=== PATIENT | female | born 1975 | race Caucasian/White ===

== ENCOUNTER 2025-03-31 17:36 | Emergency (ER) | payer BC, SELFPAY ==
[2025-03-31 17:39] VITALS: BP 157/105
[2025-03-31 20:30] VITALS: BMI 35.2
--- NOTE | 2025-03-31 22:34 | ED.GENMED ---
History of Present Illness
General
Chief Complaint: Musculo-Skeletal Complaint
Source: patient and spouse
Exam Limitations: none
Time Seen by Provider: 03/31/25 22:03
Nursing documentation reviewed up to this point in time: agreed with
History of Present Illness
History of Present Illness:
Note:
CHIEF COMPLAINT(S)
Pain in the right knee and leg for the past two weeks.
HISTORY OF PRESENT ILLNESS
The patient is a 49-year-old female who presented with persistent pain in her right leg, particularly in the knee and calf, which began two weeks ago following a physically active day involving moving her daughters to camp. The pain is described as
consistent, particularly when weight is placed on the leg, and is most pronounced upon standing after sitting for extended periods, such as getting out of a car. The patient reports that the pain tends to improve somewhat after taking initial steps
but never fully resolves, leaving an underlying discomfort. Recently, she experienced a significant increase in pain after hearing a 'pop' while ascending stairs, which was followed by shooting pain right anteromedial knee radiating to anteromedial
proximal calf region. She initially consulted her primary care physician 5 days ago who suspected a pulled muscle and advised the use of Advil (Ibuprofen) and prescribed Cyclobenzaprine as a muscle relaxant to take at bedtime. However, she reported
no relief from the Advil and experienced dizziness and arm pain after taking Cyclobenzaprine, leading her to discontinue its use after consulting with an on-call physician. She had an appt today at 6 pm with her PCP but with 'pop' sensation and
increased pain, she came to the ED for urgent evaluation.
The pain now is such that the patient avoids placing weight on her right knee when climbing stairs and describes a notable incident of increased pain with movement today. The pain distribution is mostly anterior and lateral, and while palpation of
the area is not acutely painful, the knee feels stiff. The patient has been taking up to three Advil pills at a time, last taken yesterday, but reports no significant relief from symptoms. She does not recall a specific injury event other than the
day her symptoms began. There is no history of any gastrointestinal issues with Advil usage.
No prior history of knee pain.
PLAN
1. Administer a Toradol injection for immediate pain relief.
2. Obtain a knee X-ray to rule out any structural abnormalities or significant arthritis.
3. Prescribe oral Diclofenac, 75 mg twice daily, for sustained inflammation control and pain management.
4. Provide a knee immobilizer to stabilize the joint and reduce movement, possibly supplemented by crutches if necessary, to allow for partial weight-bearing.
5. Advise the patient to follow up with orthopedics for further evaluation if symptoms persist.
DIFFERENTIAL DIAGNOSIS
The Differential Diagnosis includes, in no particular order and is not limited to:
1. Patellar Tendonitis
2. Meniscal Tear
3. Ligament Sprain or Strain
4. Osteoarthritis
5. Knee Bursitis
6. Rheumatoid Arthritis
7. Cartilage Injury
8. Muscle Strain
9. Gout
10. Deep Vein Thrombosis (ruled out by previous testing)
Past History
Past History
ED Past Medical History: None
ED Past Surgical History: Other (Deviated septum repair)
Social History
Tobacco: Non-smoker
Alcohol: None
Personal:
Living: with family
Employment: Employed (voice teacher)
Family History
Family History: Other (Noncontributory)
Phy Exam
Physical Exam
Physical Exam:
GENERAL: 49-year-old woman appears her stated age, awake and alert, pleasant, appears in no acute distress. is accompanying.
EYE: anicteric
NECK: Supple, nontender, no meningismus, no significant adenopathy.
ENT: oral mucosa is moist. No rhinorrhea.
CARDIAC: Regular rate and rhythm. no murmur.
LUNGS: Clear breath sounds bilaterally, no acute respiratory distress, no wheezes/rales/rhonchi
ABDOMEN: Soft, nondistended, without focal tenderness, no r/g, no cvat. normoactive BS.
BACK: No midline bony tenderness. Straight leg raising is negative bilaterally.
NEUROLOGICAL: Alert and oriented x3, no focal neuro deficits.
SKIN: Warm and dry, normal color, skin intact. No rash.
MUSCULOSKELETAL: No C/C/E. peripheral pulses are full and equal b/l. Right knee has questionably very minimal soft tissue swelling noted anteriorly. There is no erythema. There is mild tenderness to the right knee posteriorly. Minimal
intermittent tenderness right anteromedial proximal calf region. There is full knee range of motion with increased pain with full extension. No crepitus. No laxity. No tenderness to the thigh nor hip and full hip range of motion without
difficulty nor pain.
PSYCH: Normal and appropriate interaction.
Course
Orders/Labs/Results
Orders:
Orders
03/31/25 17:44
US Periph Venous LOWER Ext RT Urgent
Comment:
Reason For Exam: Calf pain and posterior leg pain
03/31/25 22:33
Knee Immobilizer Right-Treatme ONCE
Ketorolac [Toradol] 60 mg IM NOW STA
CR Knee- Right 4 Or More View* Urgent
Comment:
Reason For Exam: pain R knee x 2 weeks
Vital Signs
Initial and Last Documented VS:
Initial Vital Signs
Temp Pulse Resp BP Pulse Ox
98.4 F 94 16 157/105 99
03/31/25 17:39 03/31/25 17:39 03/31/25 17:39 03/31/25 17:39 03/31/25 17:39
Last Documented Vital Signs
Temp Pulse Resp BP Pulse Ox
98.4 F 94 16 157/105 99
03/31/25 17:39 03/31/25 17:39 03/31/25 17:39 03/31/25 17:39 03/31/25 22:36
*Radiology
Radiology exam reviewed: preliminary read by ED provider (Knee x-rays unremarkable) and radiology read reviewed (Ultrasound right lower extremity/DVT study negative.)
*Pulse Oximetry
SaO2: 99
Oxygen Mode of Delivery: Room air
Patient hypoxic: no
*Critical Care Note
Total Time (30-74mins, 75-104mins- exclusive of procedures): Not Applicable
Update Note
Update Note:
Knee x-ray is unremarkable.
I suspect focal knee strain, overuse injury.
Patient reports moderate improvement in pain after an IM dose of Toradol.
Will start a course of diclofenac to be taken twice daily. Recommend no NSAIDs while taking diclofenac.
Will place in knee immobilizer.
Recommend rest, heat.
Will refer to orthopedics for follow-up.
ED Attending Note
-
Portions of this chart may have been created with voice recognition software.� Occasional wrong word or��sound alike� substitutions may have occurred due to the inherent limitations of voice recognition software.
Discharge Plan
Departure
Patient Disposition: Home (Routine Discharge)
Date of Disposition: 04/01/25
Time of Disposition: 00:09
Patient with high blood pressure during this ER visit?: Yes
Condition: Good
Discharge Problem:
Strain of right knee
Instructions: Overuse Injuries (DC), Knee Brace ED, Knee pain - ED discharge instructions, BLOOD PRESSURE
Prescriptions:
New
diclofenac sodium 75 mg tablet,delayed release (DR/EC)
75 mg PO BID PRN (Reason: pain) Qty: 30 0RF
Referrals:
Jamila Hall MD [Family Provider, Internal Medicine] - Call in 1-3 days for appt
Kamar Vasquez MD [Active, Orthopedics] - Call in 1-3 days for appt
Interventions
Interventions:
*Risk Screen - Suicide Last Done: 03/31/25 20:25
*General Assessment Last Done: 03/31/25 20:25
*Neglect/Abuse Screening Last Done: 03/31/25 20:25
*ED- Fall Risk Assessment Last Done: 03/31/25 20:25
*ED COVID-19 Vaccine History Last Done: 03/31/25 20:25
ED-Musculoskeletal Assessment Last Done: 03/31/25 20:25
Discharge Date and Time
Print Language: LITHUANIAN
[2025-03-31] MEDS: TORADOL 60 MG IM (23:06)
[2025-04-01 00:30] VITALS: BP 146/94
== END 2025-04-01 00:30 | disposition home or self-care (01) ==
LOC: EMR 17:36
PROVIDERS: EMERGENCY PHYSICIAN Emergency Medicine; FAMILY PHYSICIAN Internal Medicine
DX: S86.911A Strain of unspecified muscle(s) and tendon(s) at lower leg level, right leg, initial encounter (principal); X58.XXXA Exposure to other specified factors, initial encounter; R22.41 Localized swelling, mass and lump, right lower limb
CPT/HCPCS: 96372; 29505; 99284; 73564; 93971

== ENCOUNTER → 2025-04-06 09:15 | Outpatient (REF) | payer BC, SELFPAY | LOC: PAVMRI 09:15 | PROVIDERS: ATTENDING PHYSICIAN Orthopaedic Surgery; FAMILY PHYSICIAN Family Medicine | DX: M25.561 Pain in right knee (principal) | CPT/HCPCS: 73721 ==